=== PATIENT | female | born 1975 | race Asian ===

== ENCOUNTER 2017-05-02 11:28 | Emergency (ER) | payer OTHER ==
[~2017-05-02] VITALS: Ht 162.6 cm; Wt 60.3 kg
[2017-05-02 12:23] LABS: CALCIUM 8.8 mg/dL (8.5-10.1); CARBON DIOXIDE 26.2 mmol/L (21-32); CHLORIDE SERUM 107 mmol/L (98-107); CREATININE SERUM 0.7 mg/dL (0.6-1.0); GFR1 > 60 mL/min; GLUCOSE SERUM 111 mg/dL (74-106); POTASSIUM SERUM 3.5 mmol/L (3.5-5.1); SODIUM SERUM 140 mmol/L (136-145)
[2017-05-02 12:26] LABS: BASOPHIL % 0.2 % (0-2); PLATELET COUNT 179 x10^3mcL (130-400); RED CELL DISTRIBUTION WIDTH 13.4 % (11.5-14.5)
[2017-05-02 12:28] LABS: ALKALINE PHOSPHATASE 63 U/L (46-116); ALT/SGPT 63 U/L (14-59); AST/SGOT 45 U/L (15-37); BILIRUBIN TOTAL 0.3 mg/dL (0.20-1.00); TOTAL PROTEIN, SERUM 7.3 g/dL (6.4-8.2)
[2017-05-02 12:33] LABS: ALBUMIN 3.2 g/dL (3.4-5.0)
[2017-05-02 16:21] VITALS: BP 118/72
== END 2017-05-02 16:22 | disposition home or self-care (01) ==
LOC: ED 11:28
PROVIDERS: Emergency Medicine
DX: N20.0 Calculus of kidney (principal); Z88.2 Allergy status to sulfonamides; Z88.1 Allergy status to other antibiotic agents
CPT/HCPCS: J1885; J3010; J7030; J7040

== ENCOUNTER 2020-07-07 22:02 | Emergency (ER) | payer BC ==
[~2020-07-07] VITALS: Ht 162.6 cm; Wt 59.9 kg
[2020-07-07 22:08] VITALS: Ht 162.6 cm; Wt 59.9 kg
[2020-07-07 23:02] LABS: BASOPHIL % 0.6 % (0-2); PLATELET COUNT 224 x10^3mcL (130-400)
[2020-07-07 23:13] LABS: CALCIUM 9.6 mg/dL (8.5-10.1); CARBON DIOXIDE 28.1 mmol/L (21-32); CHLORIDE SERUM 103 mmol/L (98-107); CREATININE SERUM 0.8 mg/dL (0.6-1.0); GFR1 > 60 mL/min; GLUCOSE SERUM 94 mg/dL (74-106); POTASSIUM SERUM 3.7 mmol/L (3.5-5.1); SODIUM SERUM 139 mmol/L (136-145)
[2020-07-07 23:19] LABS: UA SPECIFIC GRAVITY 1.015 (1.005-1.035); microscopic required? YES; urine erythrocyte 3+ (NEGATIVE)
[2020-07-07 23:31] LABS: ALBUMIN 3.6 g/dL (3.4-5.0); ALKALINE PHOSPHATASE 72 U/L (46-116); ALT/SGPT 32 U/L (14-59); AST/SGOT 44 U/L (15-37); BILIRUBIN TOTAL 0.38 mg/dL (0.20-1.00); LIPASE 123 IU/L (73-393); TOTAL PROTEIN, SERUM 7.4 g/dL (6.4-8.2)
[2020-07-08 03:09] VITALS: BP 116/67
== END 2020-07-08 03:09 | disposition home or self-care (01) ==
LOC: ED 22:02
PROVIDERS: Emergency Medicine
DX: N20.0 Calculus of kidney (principal); N39.0 Urinary tract infection, site not specified; Z87.442 Personal history of urinary calculi; Z88.1 Allergy status to other antibiotic agents; Z88.2 Allergy status to sulfonamides
CPT/HCPCS: J0696; J1885; J2270; J2405; J7030; J7060; Q0162

== ENCOUNTER 2020-07-31 22:04 | Emergency (ER) | payer BC, SELFPAY ==
[~2020-07-31] VITALS: Ht 162.6 cm; Wt 59.0 kg
[2020-07-31 22:06] VITALS: Ht 162.6 cm; Wt 59.0 kg
[2020-07-31 23:33] LABS: BASOPHIL % 0.5 % (0-2); PLATELET COUNT 180 x10^3mcL (130-400); RED CELL DISTRIBUTION WIDTH 13.9 % (11.5-14.5)
[2020-07-31 23:35] LABS: CALCIUM 8.5 mg/dL (8.5-10.1); CARBON DIOXIDE 24.3 mmol/L (21-32); CREATININE SERUM 1.7 mg/dL (0.6-1.0); POTASSIUM SERUM 3.5 mmol/L (3.5-5.1)
[2020-07-31 23:40] LABS: ALBUMIN 3.4 g/dL (3.4-5.0); BILIRUBIN TOTAL 0.3 mg/dL (0.20-1.00); TOTAL PROTEIN, SERUM 7.1 g/dL (6.4-8.2)
[2020-08-01 00:23] LABS: microscopic required? YES; urine erythrocyte 3+ (NEGATIVE)
[2020-08-01 01:41] VITALS: BP 94/52
[2020-08-01] MEDS ORDERED: MAC100 PO (12:10)
[2020-08-02] MEDS ORDERED: KEFLEX500 M1 PO (12:11)
[2020-08-02] MEDS ORDERED: DITROPAN XL5 MG PO (12:11)
[2020-08-02] MEDS ORDERED: ULTRAM50 MG PO (12:12)
[2020-08-02] MEDS ORDERED: IBU800 M2 PO (12:12)
[2020-08-02] MEDS ORDERED: PYRIDIUM200 M1 PO (12:13)
[2020-08-02] MEDS ORDERED: PLA200 (12:16)
== END 2020-08-01 01:42 | disposition home or self-care (01) ==
LOC: ED 22:04
PROVIDERS: Emergency Medicine
DX: N39.0 Urinary tract infection, site not specified (principal); N20.0 Calculus of kidney; Z20.828 Contact with and (suspected) exposure to other viral communicable diseases; Z88.2 Allergy status to sulfonamides; Z88.1 Allergy status to other antibiotic agents
CPT/HCPCS: J0696

== ENCOUNTER 2020-08-02 09:15 | Inpatient (IN) | payer BC, SELFPAY ==
[~2020-08-02] VITALS: Ht 160 cm; Wt 62.7 kg
[~2020-08-02 09:15] MED LIST: MAC100 PO
[2020-08-02 11:39] LABS: BASOPHIL % 0.4 % (0-2); RED CELL DISTRIBUTION WIDTH 14.3 % (11.5-14.5)
[2020-08-02 11:44] LABS: PLATELET COUNT 117 x10^3mcL (130-400)
[2020-08-02 11:56] LABS: T3 TOTAL 1.09 ng/mL
[2020-08-02 12:01] LABS: CK-MB < 0.5 ng/mL (0-3.6); CREATINE KINASE 19 U/L (26-192)
[2020-08-02] MEDS ORDERED: KEFLEX500 M1 PO (12:11)
[2020-08-02] MEDS ORDERED: DITROPAN XL5 MG PO (12:11)
[2020-08-02] MEDS ORDERED: ULTRAM50 MG PO (12:12)
[2020-08-02] MEDS ORDERED: IBU800 M2 PO (12:12)
[2020-08-02] MEDS ORDERED: PYRIDIUM200 M1 PO (12:13)
[2020-08-02] MEDS ORDERED: PLA200 (12:16)
[2020-08-02 12:20] LABS: ERYTHROCYTE SED RATE 26 mm/hr (0-20)
[2020-08-02 12:34] LABS: UA SPECIFIC GRAVITY 1.025 (1.005-1.035); microscopic required? YES; urine erythrocyte 3+ (NEGATIVE)
[2020-08-02 12:41] LABS: CALCIUM 7.6 mg/dL (8.5-10.1); CARBON DIOXIDE 18.5 mmol/L (21-32); CHLORIDE SERUM 107 mmol/L (98-107); CREATININE SERUM 0.8 mg/dL (0.6-1.0); GFR1 > 60 mL/min; GLUCOSE SERUM 101 mg/dL (74-106); POTASSIUM SERUM 3.7 mmol/L (3.5-5.1); SODIUM SERUM 138 mmol/L (136-145)
[2020-08-02 12:54] LABS: ALBUMIN 2.4 g/dL (3.4-5.0); ALKALINE PHOSPHATASE 63 U/L (46-116); ALT/SGPT 26 U/L (14-59); AST/SGOT 28 U/L (15-37); BILIRUBIN TOTAL 0.28 mg/dL (0.20-1.00); C REACTIVE PROTEIN < 0.2 mg/dL (<=0.9)
[2020-08-02 12:57] LABS: FREE T4 1.28 ng/dL (0.76-1.46); FREE THYROXINE INDEX 3.3 ug/dL (1.4-4.5); T4(THYROXINE) 10.8 ug/dL (4.7-13.3)
[2020-08-02 14:15] LABS: CHOLESTEROL/HDL RATIO 2.9; MAGNESIUM 1.4 mg/dL (1.8-2.4); PHOSPHOROUS 2.4 mg/dL (2.5-4.9)
[2020-08-02 15:44] VITALS: BP 104/74
[2020-08-02 15:59] VITALS: Ht 160 cm; Wt 62.7 kg
[2020-08-02 20:52] VITALS: BP 110/64
[2020-08-03 07:28] LABS: BASOPHIL % 0.3 % (0-2); PLATELET COUNT 147 x10^3mcL (130-400); RED CELL DISTRIBUTION WIDTH 14.4 % (11.5-14.5)
[2020-08-03 07:40] LABS: CALCIUM 7.9 mg/dL (8.5-10.1); CARBON DIOXIDE 27.9 mmol/L (21-32); CHLORIDE SERUM 105 mmol/L (98-107); CREATININE SERUM 0.7 mg/dL (0.6-1.0); GFR1 > 60 mL/min; GLUCOSE SERUM 74 mg/dL (74-106); POTASSIUM SERUM 4.1 mmol/L (3.5-5.1); SODIUM SERUM 139 mmol/L (136-145)
[2020-08-03 09:30] VITALS: BP 112/69
[2020-08-03 12:27] VITALS: BP 114/68
[2020-08-03 17:24] VITALS: BP 111/70
[2020-08-03 21:24] VITALS: BP 117/66
[2020-08-04 05:47] VITALS: BP 109/64
[2020-08-04 06:44] LABS: BASOPHIL % 0.3 % (0-2); PLATELET COUNT 166 x10^3mcL (130-400); RED CELL DISTRIBUTION WIDTH 14.3 % (11.5-14.5)
[2020-08-04] MEDS ORDERED: CIPRO500 MG PO (08:11)
[2020-08-04 08:49] LABS: CALCIUM 8.3 mg/dL (8.5-10.1); CHLORIDE SERUM 106 mmol/L (98-107); CREATININE SERUM 0.7 mg/dL (0.6-1.0); GFR1 > 60 mL/min; GLUCOSE SERUM 106 mg/dL (74-106); POTASSIUM SERUM 3.5 mmol/L (3.5-5.1); SODIUM SERUM 142 mmol/L (136-145)
[2020-08-04 09:16] VITALS: BP 123/61
== END 2020-08-04 11:30 | disposition home or self-care (01) | DRG 699 ==
LOC: ED 09:15 → DU 12:46
PROVIDERS: Specialist; ADMIT Family Medicine; ATTEND Family Medicine
DX: T83.84XA Pain due to genitourinary prosthetic devices, implants and grafts, initial encounter (principal); N39.0 Urinary tract infection, site not specified; Z20.828 Contact with and (suspected) exposure to other viral communicable diseases; M32.9 Systemic lupus erythematosus, unspecified; E83.42 Hypomagnesemia; Y84.8 Other medical procedures as the cause of abnormal reaction of the patient, or of later complication, without mention of misadventure at the time of the procedure; Z88.2 Allergy status to sulfonamides; Z88.1 Allergy status to other antibiotic agents; Z87.442 Personal history of urinary calculi; Z87.898 Personal history of other specified conditions; Y92.89 Other specified places as the place of occurrence of the external cause
CPT/HCPCS: 36600; 84439; 85378; G0378; J0696; J1100; J2543; J3475; J7030; J7060; Q0163; U0003